=== PATIENT | male | born 1965 | race Caucasian/White ===

== ENCOUNTER 2018-09-03 15:12 | Emergency (ER) | payer OTHER ==
[~2018-09-03] VITALS: Wt 111.1 kg
[~2018-09-03 15:12] MED LIST: ASPIR-TRIN325 MG PO; AUGMENTIN 875 M1 TAB PO; COLACE100 MG PO; HYDROCODONE BIT1 T11 PO; LEXAPRO20 MG PO; MEDROL DOSEPAK4 MG PO; NAPROSYN500 MG PO; NORCO 325 MG-51 TAB PO; PREVACID30 M1 PO; ROBAXIN500 M1 PO; TRAMADOL HCL50 MG PO; WELLBUTRIN XL300 MG PO; ZANTAC 7575 MG PO
[2018-09-03 15:36] LABS: HEMATOCRIT 43.8 % (42.0-52.0); HEMOGLOBIN 15.6 g/dl (14.0-18.0); MEAN CELL VOLUME 91.1 fl (80.0-94.0); MEAN CORPUSCULAR HGB 32.4 pg (27.0-31.0); MEAN CORPUSCULAR HGB CONC 35.6 g/dl (33.0-37.0); MEAN PLATELET VOLUME 8.2 fl (9.6-12.3); PLATELET COUNT AUTOMATED 251 10*3/uL (130-400); RED BLOOD COUNT 4.81 10*6/uL (4.50-5.90); WHITE BLOOD COUNT 23.1 10*3/uL (4.8-10.8)
[2018-09-03 15:40] LABS: BILIRUBIN NEGATIVE (NEGATIVE); BLOOD NEGATIVE (NEGATIVE); CLARITY CLEAR (CLEAR); COLOR YELLOW (YELLOW); GLUCOSE NEGATIVE (NEGATIVE); KETONE NEGATIVE (NEGATIVE); LEUKO ESTERASE NEGATIVE (NEGATIVE); NITRITE NEGATIVE (NEGATIVE); PH 6.5 (5.0-9.0)
[2018-09-03 15:45] LABS: BACTERIA TRACE; EPITHELIAL CELLS 0-2; MUCOUS 1+; RBC 0-2 rbc/hpf (0-2); WBC 0-2 wbc/hpf (0-5)
[2018-09-03 15:51] LABS: ALBUMIN 4.1 gm/dl (3.1-4.5); ALKALINE PHOSPHATASE 93 U/L (45-117); BUN 11 mg/dl (7-24); CHLORIDE 103 mmol/L (98-107); CREATININE 1.09 mg/dL (0.70-1.30); LIPASE 68 U/L (73-393); SGOT/AST 15 IU/L (3-35); SGPT/ALT 26 U/L (12-78); SODIUM 136 mmol/L (136-145)
[2018-09-03 16:00] LABS: PLATELET SUFFICIENCY NORMAL (NORMAL); TOTAL CELLS COUNTED 100 #CELLS
[2018-09-03] MEDS ORDERED: CIPRO500 MG PO (17:29)
[2018-09-03] MEDS ORDERED: FLAGYL500 MG PO (17:29)
[2018-09-03] MEDS ORDERED: NORCO 5-325 TA1 EACH PO (17:29)
[2018-09-03] MEDS ORDERED: ZOFRAN ODT4 MG SL (17:34)
== END 2018-09-03 17:31 | disposition home or self-care (01) ==
LOC: ED 15:12
PROVIDERS: Physician Assistant
DX: K57.32 Diverticulitis of large intestine without perforation or abscess without bleeding (principal); Z79.899 Other long term (current) drug therapy; Z79.82 Long term (current) use of aspirin

== ENCOUNTER 2018-09-14 10:47 | Inpatient (IN) | payer OTHER ==
[~2018-09-14] VITALS: Ht 185.4 cm; Wt 108.9 kg
--- NOTE | ~2018-09-14 | EKG ---
[place], [place] ELECTROCARDIOGRAM REPORT NAME: TIM GLASS UNIT #: [id number] ROOM: 405 DOCTOR: VIKA DRAFT REPORT BIRTHDATE: [birth year] [facility] Test Date: 2018-09-14 Test Time: 11:11:04 Pat Name: TIM GLASS Department: Room: 405 Gender: M Shoe Caser: Inna Randolph : 1965 Requested By: TRACY DIALLO Order Number: [id number] Reading MD: Jacky Whittington MD Measurements Intervals [place] Rate: 72 P: 7 AL: 161 QRS: -1 QRSD: 93 T: -3 QT: 400 QTc: 438 Interpretive Statements Sinus rhythm Left ventricular hypertrophy No previous ECG available for comparison Electronically Signed On 09-14-2018 14:33:17 PST by Jacky Whittington MD CM:EKGRPT:ELECTROCARDIOGRAM REPORT [id number] TRACY [place] DRAFT REPORT TRACY DIALLO DO
[2018-09-14 02:00] VITALS: BP 100/76
[2018-09-14 10:47] VITALS: BP 134/95
[~2018-09-14 10:47] MED LIST changes: +CIPRO500 MG PO; +FLAGYL500 MG PO; +NORCO 5-325 TA1 EACH PO; +ZOFRAN ODT4 MG SL
[2018-09-14] MEDS ORDERED: VENLAFAXINE HY150 M2 PO (10:58)
[2018-09-14] MEDS ORDERED: ASPIRIN81 M1 PO (11:06)
[2018-09-14 11:29] LABS: HEMOGLOBIN 14.3 g/dl (14.0-18.0); MEAN CELL VOLUME 92.3 fl (80.0-94.0); MEAN CORPUSCULAR HGB 32.2 pg (27.0-31.0); MEAN CORPUSCULAR HGB CONC 34.9 g/dl (33.0-37.0); MEAN PLATELET VOLUME 8.2 fl (9.6-12.3); PLATELET COUNT AUTOMATED 381 10*3/uL (130-400); RED BLOOD COUNT 4.44 10*6/uL (4.50-5.90); RED CELL DISTRI WIDTH 11.8 % (0-14.5); WHITE BLOOD COUNT 20.4 10*3/uL (4.8-10.8)
[2018-09-14 11:40] LABS: ACT PARTIAL THROMBO TIME 27.1 SECONDS (20.8-31.5); INTERNATIONAL NORM RATIO 1.1 (2.0-3.5)
[2018-09-14 11:47] LABS: ALBUMIN 3.4 gm/dl (3.1-4.5); ALKALINE PHOSPHATASE 70 U/L (45-117); BUN 11 mg/dl (7-24); CHLORIDE 98 mmol/L (98-107); CREATININE 1.02 mg/dL (0.70-1.30); LIPASE 85 U/L (73-393); SGOT/AST 13 IU/L (3-35); SGPT/ALT 20 U/L (12-78); SODIUM 133 mmol/L (136-145)
[2018-09-14 11:48] LABS: BASOPHILS 1 % (0-1); PLATELET SUFFICIENCY NORMAL (NORMAL); TOTAL CELLS COUNTED 100 #CELLS
[2018-09-14 11:50] LABS: BILIRUBIN 1+ (NEGATIVE); BLOOD NEGATIVE (NEGATIVE); CLARITY CLOUDY (CLEAR); COLOR YELLOW (YELLOW); GLUCOSE NEGATIVE (NEGATIVE); KETONE 1+ (NEGATIVE); LEUKO ESTERASE TRACE (NEGATIVE); NITRITE NEGATIVE (NEGATIVE); SPECIFIC GRAVITY >= 1.030 (1.005-1.030); UROBILINOGEN 0.2 E.U./dl (0.2-1.0)
[2018-09-14 11:50] LABS: TROPONIN I < 0.015 ng/ml (<0.045)
[2018-09-14 12:16] LABS: BACTERIA 2+; MUCOUS 2+; RBC 16-20 rbc/hpf (0-2)
[2018-09-14 13:10] VITALS: BP 128/83
[2018-09-14 16:00] VITALS: BP 129/85
[2018-09-14 20:00] VITALS: BP 129/87
[2018-09-15] VITALS: BP 110/71
[2018-09-15 06:08] LABS: HEMATOCRIT 36.9 % (42.0-52.0); HEMOGLOBIN 12.3 g/dl (14.0-18.0); MEAN CELL VOLUME 94.9 fl (80.0-94.0); MEAN CORPUSCULAR HGB 31.6 pg (27.0-31.0); MEAN CORPUSCULAR HGB CONC 33.3 g/dl (33.0-37.0); MEAN PLATELET VOLUME 8.6 fl (9.6-12.3); PLATELET COUNT AUTOMATED 367 10*3/uL (130-400); RED BLOOD COUNT 3.89 10*6/uL (4.50-5.90); RED CELL DISTRI WIDTH 11.9 % (0-14.5); WHITE BLOOD COUNT 17.7 10*3/uL (4.8-10.8)
[2018-09-15 06:44] LABS: BUN 10 mg/dl (7-24); CHLORIDE 102 mmol/L (98-107); SODIUM 138 mmol/L (136-145)
[2018-09-15 06:46] LABS: ACT PARTIAL THROMBO TIME 27.1 SECONDS (20.8-31.5); INTERNATIONAL NORM RATIO 1.1 (2.0-3.5)
[2018-09-15 06:49] LABS: CREATININE 1.06 mg/dL (0.70-1.30); PHOSPHOROUS 3.5 mg/dL (2.5-4.9)
[2018-09-15 06:55] LABS: PLATELET SUFFICIENCY NORMAL (NORMAL); TOTAL CELLS COUNTED 100 #CELLS
[2018-09-15 08:00] VITALS: BP 125/82
[2018-09-15 12:00] VITALS: BP 122/76
[2018-09-15 16:00] VITALS: BP 134/82
[2018-09-15 20:00] VITALS: BP 125/81
[2018-09-16] VITALS: BP 145/98
[2018-09-16 06:36] LABS: BASO # 0.1 10*3/uL (0.0-0.1); BASO % 0.5 % (0.0-1.0); EOS # 0.2 10*3/uL (0.0-0.4); EOS % 1.6 % (1.0-4.0); HEMATOCRIT 37.7 % (42.0-52.0); HEMOGLOBIN 12.7 g/dl (14.0-18.0); LYMPH # 1.5 10*3/uL (1.3-4.4); LYMPH % 12.4 % (27.0-41.0); MEAN CELL VOLUME 94.5 fl (80.0-94.0); MEAN CORPUSCULAR HGB 31.8 pg (27.0-31.0); MEAN CORPUSCULAR HGB CONC 33.7 g/dl (33.0-37.0); MEAN PLATELET VOLUME 8.4 fl (9.6-12.3); MONO # 1.2 10*3/uL (0.1-1.0); MONO % 10.2 % (3.0-9.0); NEUT # 9.1 10*3/uL (2.3-7.9); NEUT % 74.7 % (47.0-73.0); PLATELET COUNT AUTOMATED 372 10*3/uL (130-400); RED BLOOD COUNT 3.99 10*6/uL (4.50-5.90); RED CELL DISTRI WIDTH 11.7 % (0-14.5); WHITE BLOOD COUNT 12.2 10*3/uL (4.8-10.8)
[2018-09-16 07:08] LABS: CHLORIDE 104 mmol/L (98-107); POTASSIUM 4.1 mmol/L (3.5-5.1); SODIUM 140 mmol/L (136-145)
[2018-09-16 07:16] LABS: ALBUMIN 2.6 gm/dl (3.1-4.5); ALKALINE PHOSPHATASE 59 U/L (45-117); BUN 6 mg/dl (7-24); CREATININE 0.86 mg/dL (0.70-1.30); SGOT/AST 9 IU/L (3-35); SGPT/ALT 13 U/L (12-78); TOTAL PROTEIN 7.1 gm/dL (6.4-8.2)
[2018-09-16 08:00] VITALS: BP 132/94
[2018-09-16 12:00] VITALS: BP 133/88
[2018-09-16 16:00] VITALS: BP 140/91
[2018-09-16 20:00] VITALS: BP 130/85
[2018-09-17] VITALS: BP 144/91
[2018-09-17 06:40] LABS: BASO # 0.1 10*3/uL (0.0-0.1); BASO % 0.6 % (0.0-1.0); EOS # 0.4 10*3/uL (0.0-0.4); EOS % 4.9 % (1.0-4.0); HEMATOCRIT 37.8 % (42.0-52.0); HEMOGLOBIN 12.5 g/dl (14.0-18.0); LYMPH # 1.7 10*3/uL (1.3-4.4); LYMPH % 19.9 % (27.0-41.0); MEAN CELL VOLUME 94.5 fl (80.0-94.0); MEAN CORPUSCULAR HGB 31.3 pg (27.0-31.0); MEAN CORPUSCULAR HGB CONC 33.1 g/dl (33.0-37.0); MEAN PLATELET VOLUME 8.4 fl (9.6-12.3); MONO # 1.1 10*3/uL (0.1-1.0); MONO % 12.1 % (3.0-9.0); NEUT # 5.4 10*3/uL (2.3-7.9); NEUT % 61.9 % (47.0-73.0); PLATELET COUNT AUTOMATED 386 10*3/uL (130-400); RED CELL DISTRI WIDTH 11.6 % (0-14.5); WHITE BLOOD COUNT 8.8 10*3/uL (4.8-10.8)
[2018-09-17 07:09] LABS: BUN 6 mg/dl (7-24); CHLORIDE 106 mmol/L (98-107); CREATININE 0.99 mg/dL (0.70-1.30); POTASSIUM 4.3 mmol/L (3.5-5.1); SODIUM 140 mmol/L (136-145)
[2018-09-17 08:00] VITALS: BP 148/93; BP 149/74
[2018-09-17 12:00] VITALS: BP 143/98
[2018-09-17 16:00] VITALS: BP 143/87
[2018-09-17 20:00] VITALS: BP 136/89
[2018-09-18] VITALS: BP 140/83
[2018-09-18 07:05] LABS: BASO % 0.5 % (0.0-1.0); EOS # 0.4 10*3/uL (0.0-0.4); EOS % 4.7 % (1.0-4.0); HEMATOCRIT 39.3 % (42.0-52.0); HEMOGLOBIN 13.1 g/dl (14.0-18.0); LYMPH % 25.7 % (27.0-41.0); MEAN CELL VOLUME 94.7 fl (80.0-94.0); MEAN CORPUSCULAR HGB 31.6 pg (27.0-31.0); MEAN CORPUSCULAR HGB CONC 33.3 g/dl (33.0-37.0); MEAN PLATELET VOLUME 8.3 fl (9.6-12.3); MONO # 0.9 10*3/uL (0.1-1.0); MONO % 10.9 % (3.0-9.0); NEUT # 4.5 10*3/uL (2.3-7.9); NEUT % 57.7 % (47.0-73.0); PLATELET COUNT AUTOMATED 422 10*3/uL (130-400); RED BLOOD COUNT 4.15 10*6/uL (4.50-5.90); RED CELL DISTRI WIDTH 11.7 % (0-14.5); WHITE BLOOD COUNT 7.8 10*3/uL (4.8-10.8)
[2018-09-18 07:18] LABS: BUN 8 mg/dl (7-24); CHLORIDE 104 mmol/L (98-107); CREATININE 0.88 mg/dL (0.70-1.30); POTASSIUM 4.3 mmol/L (3.5-5.1); SODIUM 142 mmol/L (136-145)
[2018-09-18 08:00] VITALS: BP 142/84
[2018-09-18 12:00] VITALS: BP 130/92
[2018-09-18 16:00] VITALS: BP 138/94
[2018-09-18 20:00] VITALS: BP 140/96
[2018-09-19] VITALS: BP 134/93
[2018-09-19 08:00] VITALS: BP 132/82
[2018-09-19] MEDS ORDERED: AMINOPHYLLIN200 MG PO (09:54)
[2018-09-19] MEDS ORDERED: NORCO 5-325 TA1 EACH PO (09:54)
== END 2018-09-19 13:07 | disposition home or self-care (01) | DRG 392 ==
LOC: ED 10:47 → 4E 13:31 → EDHOLD 13:31 → 4E 13:42
PROVIDERS: Emergency Medicine; Student in an Organized Health Care Education/Training Program
PROC: 0D9N30Z Drainage of Sigmoid Colon with Drainage Device, Percutaneous Approach (ICD-10-PCS; principal; 2018-09-15)
DX: K57.20 Diverticulitis of large intestine with perforation and abscess without bleeding (principal); E87.1 Hypo-osmolality and hyponatremia; D72.829 Elevated white blood cell count, unspecified; E83.41 Hypermagnesemia; R80.9 Proteinuria, unspecified; R82.4 Acetonuria; R82.2 Biliuria; R82.71 Bacteriuria; E66.9 Obesity, unspecified; K21.9 Gastro-esophageal reflux disease without esophagitis; F41.9 Anxiety disorder, unspecified; K22.719 Barrett's esophagus with dysplasia, unspecified; Z82.49 Family history of ischemic heart disease and other diseases of the circulatory system; Z79.899 Other long term (current) drug therapy

== ENCOUNTER → 2019-01-16 | Outpatient (CLI) | payer OTHER ==
[~2019-01-16] MED LIST changes: +AMINOPHYLLIN200 MG PO; +ASPIRIN81 M1 PO; +VENLAFAXINE HY150 M2 PO
== END | disposition home or self-care (01) ==
LOC: RAD 10:30
DX: M54.2 Cervicalgia (principal)

== ENCOUNTER 2019-10-05 10:40 | Emergency (ER) | payer OTHER ==
[~2019-10-05] VITALS: Ht 182.8 cm; Wt 102.1 kg
[2019-10-05 11:27] LABS: BASO # 0.1 10*3/uL (0.0-0.1); BASO % 0.6 % (0.0-1.0); EOS # 0.2 10*3/uL (0.0-0.4); EOS % 2.8 % (1.0-4.0); HEMATOCRIT 41.8 % (42.0-52.0); HEMOGLOBIN 14.2 g/dl (14.0-18.0); LYMPH # 1.7 10*3/uL (1.3-4.4); LYMPH % 19.6 % (27.0-41.0); MEAN CELL VOLUME 95.4 fl (80.0-94.0); MEAN CORPUSCULAR HGB 32.4 pg (27.0-31.0); MEAN PLATELET VOLUME 8.4 fl (9.6-12.3); MONO # 0.7 10*3/uL (0.1-1.0); MONO % 8.5 % (3.0-9.0); NEUT # 5.8 10*3/uL (2.3-7.9); NEUT % 68.1 % (47.0-73.0); PLATELET COUNT AUTOMATED 246 10*3/uL (130-400); RED BLOOD COUNT 4.38 10*6/uL (4.50-5.90); RED CELL DISTRI WIDTH 12.3 % (0-14.5); WHITE BLOOD COUNT 8.5 10*3/uL (4.8-10.8)
[2019-10-05 11:44] LABS: ALBUMIN 3.7 gm/dl (3.1-4.5); ALKALINE PHOSPHATASE 95 U/L (45-117); BUN 12 mg/dl (7-24); CHLORIDE 107 mmol/L (98-107); CREATININE 1.05 mg/dL (0.70-1.30); POTASSIUM 4.4 mmol/L (3.5-5.1); SGOT/AST 16 IU/L (3-35); SGPT/ALT 25 U/L (12-78); SODIUM 140 mmol/L (136-145); TOTAL PROTEIN 7.5 gm/dL (6.4-8.2)
[2019-10-05] MEDS ORDERED: CEPHALEXIN500 M1 PO (12:53)
[2019-10-05] MEDS ORDERED: ANTIBIOTIC28.4 GM T (12:53)
[2019-10-05] MEDS ORDERED: SEPTDS PO (12:53)
== END 2019-10-05 12:56 | disposition home or self-care (01) ==
LOC: ED 10:40
PROVIDERS: Nurse Practitioner Family
DX: S50.311A Abrasion of right elbow, initial encounter (principal); L03.113 Cellulitis of right upper limb; K21.9 Gastro-esophageal reflux disease without esophagitis; Z79.899 Other long term (current) drug therapy; W01.198A Fall on same level from slipping, tripping and stumbling with subsequent striking against other object, initial encounter; Y93.01 Activity, walking, marching and hiking; Y92.098 Other place in other non-institutional residence as the place of occurrence of the external cause; Y99.8 Other external cause status